=== PATIENT | female | born 1970 | race Caucasian/White ===

== ENCOUNTER → 2016-10-31 | Outpatient (CLI) | payer BC ==
[~2016-10-31] MED LIST: ATIVAN 0.50.5 MG/TAB PO; CALCITRIOL0.25 MCG PO; CRESTOR10 MG PO; CYMBALTA60 MG PO; DEXILANT60 MG PO; LAMICTAL100 MG PO; LAMICTAL200 MG PO; MAGNESIUM500 MG PO; OMEGA-31000 MG PO; OMEPRAZOLE40 MG PO; OYSTER SHELL C250 MG PO; POTASSIUM CHLO10 ME5 PO; RANITIDINE300 MG PO; SYNTHROID0.137 MG PO; SYNTHROID0.15 MG PO; WELLBUTRIN SR100 M2 PO; WELLBUTRIN100 MG PO
== END ==
LOC: LAB 07:50
DX: E78.00 Pure hypercholesterolemia, unspecified (principal)

== ENCOUNTER → 2016-12-19 | Outpatient (CLI) | payer BC | LOC: LAB 09:29 | DX: R10.13 Epigastric pain (principal); R76.8 Other specified abnormal immunological findings in serum ==

== ENCOUNTER → 2016-12-22 | Day surgery (SDC) | payer BC | LOC: MSO 08:03 | DX: K29.60 Other gastritis without bleeding (principal); K31.7 Polyp of stomach and duodenum; Z85.850 Personal history of malignant neoplasm of thyroid; K21.9 Gastro-esophageal reflux disease without esophagitis | CPT/HCPCS: 00740; A4649; J7120 ==

== ENCOUNTER → 2018-04-23 | Outpatient (CLI) | payer BC ==
[2015-04-04 15:35] VITALS: BP 123/88
[2018-04-23 08:55] LABS: ALBUMIN 3.9 g/dL (3.5-5.0); DIRECT BILIRUBIN 0.1 mg/dL (0.0-0.4); TOTAL BILIRUBIN 0.4 mg/dL (0.2-1.3); TOTAL PROTEIN 7.1 g/dL (6.3-8.2)
== END ==
LOC: LAB 08:21
PROVIDERS: Family Medicine
DX: E78.00 Pure hypercholesterolemia, unspecified (principal)

== ENCOUNTER → 2018-05-03 | Outpatient (CLI) | payer BC ==
[2015-04-04 15:35] VITALS: BP 123/88
[2018-05-04 22:41] LABS: HEPATITIS B SURFACE ANTIBODY 4.7 (())
== END ==
LOC: LAB 15:15
PROVIDERS: Family Medicine
DX: Z78.9 Other specified health status (principal)

== ENCOUNTER → 2018-07-23 | Outpatient (CLI) | payer BC ==
[~2018-07-23] VITALS: Ht 167.6 cm; Wt 79.5 kg
[2018-07-23 15:27] VITALS: BP 99/61
[2018-07-23 19:55] VITALS: BP 98/60
== END ==
LOC: AMSURD 15:13
DX: R11.2 Nausea with vomiting, unspecified (principal)
CPT/HCPCS: J1885; J2270; J2550; J3010; J7030

== ENCOUNTER 2018-09-29 16:00 | Outpatient (RCR) | payer BC ==
[2018-07-23 19:55] VITALS: BP 98/60
== END 2018-10-31 | disposition home or self-care (01) ==
LOC: PT
DX: S46.011D Strain of muscle(s) and tendon(s) of the rotator cuff of right shoulder, subsequent encounter (principal)

== ENCOUNTER → 2018-10-15 | Outpatient (CLI) | payer BC ==
[2018-07-23 19:55] VITALS: BP 98/60
[2018-10-15 08:08] LABS: ALBUMIN 4.6 g/dL (3.5-5.0); DIRECT BILIRUBIN 0.3 mg/dL (0.0-0.4); TOTAL BILIRUBIN 0.3 mg/dL (0.2-1.3); TOTAL PROTEIN 7.6 g/dL (6.3-8.2)
== END ==
LOC: LAB 07:42
PROVIDERS: Family Medicine
DX: E78.00 Pure hypercholesterolemia, unspecified (principal)

== ENCOUNTER → 2019-03-23 | Outpatient (CLI) | payer BC ==
[2018-07-23 19:55] VITALS: BP 98/60
[2019-03-23 10:36] LABS: ALBUMIN 4.1 g/dL (3.5-5.0); DIRECT BILIRUBIN 0.1 mg/dL (0.0-0.5); TOTAL BILIRUBIN 0.3 mg/dL (0.2-1.2); TOTAL PROTEIN 6.9 g/dL (6.4-8.3)
== END ==
LOC: LAB 09:12
DX: E78.00 Pure hypercholesterolemia, unspecified (principal); E89.0 Postprocedural hypothyroidism

== ENCOUNTER → 2019-06-02 | Outpatient (CLI) | payer BC ==
[2018-07-23 19:55] VITALS: BP 98/60
[2019-06-02 16:23] LABS: ALBUMIN 4.3 g/dL (3.5-5.0); POTASSIUM 3.8 mmol/L (3.5-5.1)
[2019-06-02 16:24] LABS: CALCIUM 9.3 mg/dL (8.3-10.5)
[2019-06-02 16:27] LABS: TOTAL BILIRUBIN 0.4 mg/dL (0.2-1.2)
== END ==
LOC: LAB 15:42
PROVIDERS: Psychiatry & Neurology Psychiatry
DX: Z13.89 Encounter for screening for other disorder (principal); M79.89 Other specified soft tissue disorders

== ENCOUNTER → 2019-06-09 | Outpatient (CLI) | payer BC ==
[2018-07-23 19:55] VITALS: BP 98/60
== END ==
LOC: RAD 15:54
DX: M89.8X5 Other specified disorders of bone, thigh (principal)

== ENCOUNTER → 2019-06-24 | Outpatient (CLI) | payer BC ==
[~2019-06-24] VITALS: Ht 167.6 cm; Wt 84.5 kg
[~2019-06-24] MED LIST changes: +ALDACTONE50 M1 PO; +ESTRACE 1MG1 MG/TAB PO; +MULTIVITAMIN1 SGL PO; +PROPRANOLOL HCL60 M3 PO; +RIZATRIPTAN BENZ5 MG PO
[2019-06-24 14:22] VITALS: BP 122/88
[2019-06-24 14:35] LABS: URINE APPEARANCE CLEAR; URINE BILIRUBIN NEGATIVE (NEGATIVE); URINE BLOOD NEGATIVE (NEGATIVE); URINE COLOR YELLOW; URINE GLUCOSE NEGATIVE (NEGATIVE); URINE KETONE NEGATIVE (NEGATIVE); URINE LEUKOCYTE ESTERASE NEGATIVE (NEGATIVE); URINE NITRATE NEGATIVE (NEGATIVE); URINE PROTEIN(semi-quant) NEGATIVE (NEGATIVE); URINE UROBILINOGEN NORMAL (NORMAL); URINE WBC 0-1 /hpf (0-3)
[2019-06-24 14:59] LABS: EOS # 0.4 (0.04-0.40); EOS % 4.3 % (1.0-5.0); HEMATOCRIT 38.9 % (37.0-47.0); HEMOGLOBIN 12.7 g/dL (12.5-16.0); LYMPH# 2.7 (1.50-4.00); MEAN CELL VOLUME 91 fl (78-100); MEAN CORPUSCULAR HEMOGLOBIN 30 pg (27-31); MEAN CORPUSCULAR HGB CONC 33 g/dL (33-37); MONO # 0.6 (0.20-0.80); NEU # 4.5 (1.40-6.50); PLATELET COUNT 362 K/mm3 (130-400); RED BLOOD COUNT 4.26 M/mm3 (4.10-5.30); RED CELL DISTRIBUTION WIDTH 12.2 % (11.5-14.5); WHITE BLOOD COUNT 8.2 K/mm3 (4.8-10.8)
[2019-06-24 23:17] LABS: CREATININE OTHER SOURCE 31 mg/dL (())
== END ==
LOC: LAB 13:46
PROVIDERS: Family Medicine
DX: I10 Essential (primary) hypertension (principal); G57.81 Other specified mononeuropathies of right lower limb

== ENCOUNTER → 2019-06-30 | Outpatient (CLI) | payer BC ==
[2019-06-24 14:22] VITALS: BP 122/88
== END ==
LOC: VAS 15:56 → RAD 16:00
DX: I35.8 Other nonrheumatic aortic valve disorders (principal); I10 Essential (primary) hypertension

== ENCOUNTER → 2019-07-13 | Outpatient (CLI) | payer BC ==
[2019-06-24 14:22] VITALS: BP 122/88
== END ==
LOC: LAB 15:22
DX: C73 Malignant neoplasm of thyroid gland (principal); I10 Essential (primary) hypertension

== ENCOUNTER → 2019-07-30 | Outpatient (CLI) | payer BC ==
[2019-06-24 14:22] VITALS: BP 122/88
[2019-08-03 10:42] LABS: RENIN,PLASMA 1.1 ng/mL/h (())
[2019-08-03 22:50] LABS: CORTISOL,URINE 8.7 mcg/24 h (3.5-45)
== END ==
LOC: LAB 09:09
PROVIDERS: Family Medicine
DX: I10 Essential (primary) hypertension (principal); Z85.850 Personal history of malignant neoplasm of thyroid

== ENCOUNTER → 2019-08-29 | Outpatient (CLI) | payer BC ==
[2019-06-24 14:22] VITALS: BP 122/88
== END ==
LOC: RAD 10:26
DX: I10 Essential (primary) hypertension (principal)
CPT/HCPCS: Q9967

== ENCOUNTER → 2020-04-13 | Outpatient (CLI) | payer BC ==
[2019-06-24 14:22] VITALS: BP 122/88
== END ==
LOC: LAB 09:20
DX: J02.9 Acute pharyngitis, unspecified (principal); M79.10 Myalgia, unspecified site; R51 Headache; R53.83 Other fatigue; R06.02 Shortness of breath; I10 Essential (primary) hypertension; Z20.828 Contact with and (suspected) exposure to other viral communicable diseases

== ENCOUNTER → 2020-05-24 | Outpatient (CLI) | payer BC ==
[2019-06-24 14:22] VITALS: BP 122/88
[2020-05-24 08:51] LABS: POTASSIUM 4.1 mmol/L (3.5-5.1)
[2020-05-24 08:52] LABS: ALBUMIN 4.1 g/dL (3.5-5.0)
[2020-05-24 08:53] LABS: CALCIUM 9.1 mg/dL (8.3-10.5)
[2020-05-24 08:54] LABS: TOTAL PROTEIN 7.4 g/dL (6.4-8.3)
[2020-05-24 08:56] LABS: TOTAL BILIRUBIN 0.3 mg/dL (0.2-1.2)
== END ==
LOC: LAB 08:27
DX: E78.2 Mixed hyperlipidemia (principal); I10 Essential (primary) hypertension; C73 Malignant neoplasm of thyroid gland; E89.0 Postprocedural hypothyroidism; Z85.850 Personal history of malignant neoplasm of thyroid

== ENCOUNTER → 2020-08-16 | Outpatient (CLI) | payer BC ==
[2019-06-24 14:22] VITALS: BP 122/88
== END ==
LOC: LAB 16:58
DX: Z02.0 Encounter for examination for admission to educational institution (principal)

== ENCOUNTER → 2020-09-15 | Outpatient (CLI) | payer BC ==
[2019-06-24 14:22] VITALS: BP 122/88
== END ==
LOC: LAB 11:10
DX: U07.1 COVID-19 (principal)

== ENCOUNTER → 2020-11-16 | Outpatient (CLI) | payer BC ==
[2019-06-24 14:22] VITALS: BP 122/88
[2020-11-16 08:15] LABS: ALBUMIN 3.9 g/dL (3.5-5.0)
[2020-11-16 08:18] LABS: TOTAL PROTEIN 6.6 g/dL (6.4-8.3)
[2020-11-16 08:19] LABS: TOTAL BILIRUBIN 0.4 mg/dL (0.2-1.2)
[2020-11-16 08:23] LABS: DIRECT BILIRUBIN 0.2 mg/dL (0.0-0.5)
== END ==
LOC: LAB 07:32
PROVIDERS: Family Medicine
DX: E78.2 Mixed hyperlipidemia (principal)

== ENCOUNTER 2024-01-30 11:12 | Emergency (ER) | payer BC ==
[~2024-01-30] VITALS: Ht 167.6 cm; Wt 79.1 kg
[~2024-01-30 11:12] MED LIST changes: +CRESTOR40 MG PO; +DULOXETINE60 MG PO; +FISH OIL1 IU PO; +LAMICTAL200 M1 PO; +LEVOTHYROXINE112 MC1 PO; +MACROBID 100 M100 MG PO; +METOPROLOL SUCC50 M1 PO; +MULTIVITAMIN1 EACH PO; +OZEMPIC1 MG/0.71 SQ; +WELLBUTRIN SR200 M1 PO
[2024-01-30 12:01] LABS: BASO # 0.04 K/mm3 (0.02-0.10); EOS # 0.43 K/mm3 (0.04-0.40); EOS % 4.4 % (1.0-5.0); HEMATOCRIT 40.5 % (37.0-47.0); HEMOGLOBIN 13.2 g/dL (12.5-16.0); LYMPH# 1.78 K/mm3 (1.50-4.00); MEAN CELL VOLUME 91 fl (78-100); MEAN CORPUSCULAR HEMOGLOBIN 30 pg (27-31); MEAN CORPUSCULAR HGB CONC 33 g/dL (33-37); MEAN PLATELET VOLUME 8.4 fl (7.4-10.4); MONO # 0.59 K/mm3 (0.20-0.80); NEU # 6.89 K/mm3 (1.40-6.50); PLATELET COUNT 276 K/mm3 (130-400); RED BLOOD COUNT 4.47 M/mm3 (4.10-5.30); RED CELL DISTRIBUTION WIDTH 12.2 % (11.5-14.5); WHITE BLOOD COUNT 9.7 K/mm3 (4.8-10.8)
[2024-01-30 12:08] LABS: ALBUMIN 4.3 g/dL (3.5-5.0); SODIUM 139 mmol/L (136-145)
[2024-01-30 12:09] LABS: URINE APPEARANCE CLEAR (CLEAR); URINE BILIRUBIN 1+ (NEGATIVE); URINE BLOOD NEGATIVE (NEGATIVE); URINE COLOR YELLOW (YELLOW); URINE GLUCOSE NEGATIVE (NEGATIVE); URINE KETONE 1+ (NEGATIVE); URINE LEUKOCYTE ESTERASE TRACE (NEGATIVE); URINE MUCUS PRESENT (NOT PRESENT); URINE NITRATE NEGATIVE (NEGATIVE); URINE PROTEIN(semi-quant) NEGATIVE (NEGATIVE)
[2024-01-30 12:09] LABS: CALCIUM 9.4 mg/dL (8.3-10.5)
[2024-01-30 12:10] LABS: GLUCOSE 110 mg/dL (65-105)
[2024-01-30 12:11] LABS: TOTAL PROTEIN 6.9 g/dL (6.4-8.3)
[2024-01-30 12:12] LABS: CARBON DIOXIDE 23 mmol/L (22-29); TOTAL BILIRUBIN 0.2 mg/dL (0.2-1.2)
[2024-01-30 12:16] LABS: AST-SGOT 21 U/L (5-34)
[2024-01-30 12:17] LABS: ALT/SGPT 35 U/L (0-55)
[2024-01-30 13:10] VITALS: BP 128/81
== END 2024-01-30 13:11 | disposition home or self-care (01) ==
LOC: ED 11:12
PROVIDERS: Family Medicine
DX: R41.82 Altered mental status, unspecified (principal); N39.0 Urinary tract infection, site not specified; E66.9 Obesity, unspecified; Z79.899 Other long term (current) drug therapy